=== PATIENT | male | born 1950 | race Caucasian/White ===

== ENCOUNTER 2018-07-02 15:37 | Emergency (ER) | payer MEDICARE ==
--- NOTE | 2018-07-02 16:18 | EDM.PDOC ---
ED HPI GENERAL MEDICAL PROBLEM - General Stated Complaint: POSSIBLE STROKE Time Seen by Provider: 07/02/18 15:50 Source of Information: Reports: Patient, EMS History Limitations: Reports: No Limitations - History of Present Illness INITIAL COMMENTS - FREE TEXT/NARRATIVE: According to patient he claims that he has not been able to walk or move since around 9 am today morning. Pt claims that as usual he did get up in the morning , had his breakfast and then walked upstairs and got downstairs.Sta on couch to watch Television. Around 9 am when he tried to get out of the couch, he could not support his weight on his legs and he would fall. He claims that he leans towards the left side, if he tries to stand and has no strength in his legs to stand.. He has been using his upper body strength and holding on to thing and moving around the house. Apparently as he has not been able to walk he called EMS around 4 PM. When EMS went home he was still sitting on the couch, and was brought into the emergency room. Pt's initial blood sugar was 172mgs. No incontinence of urine or stool. No nausea or vomiting. No headache. No diplopia. No tingling or numbness in the extremities. No blurry vision. No double vision. Onset: Today Onset Date: 07/02/18 Onset Time: 09:00 Duration: Constant Quality: Reports: Other (weakness) Severity: Severe Improves with: Reports: None Worsens with: Reports: None Associated Symptoms: Denies: Confusion, Chest Pain, Cough, Diaphoresis, Fever/ Chills, Headaches, Nausea/Vomiting, Rash, Seizure, Shortness of Breath, Syncope , Weakness - Related Data Allergies Allergy/AdvReac Type Severity Reaction Status Date / Time No Known Allergies Allergy Verified 07/02/18 16:11 Home Meds: Home Meds Aspirin 0.5 tab PO DAILY 07/02/18 [History] Blood Sugar Diagnostic [True Metrix Glucose Test Strip] 1 each MC DAILY [History] Lisinopril/Hydrochlorothiazide [Lisinopril-Hctz 20-25 mg Tab] 20 - 25 mg PO DAILY 07/02/18 [History] Omeprazole 40 mg PO DAILY 07/02/18 [History] Sertraline HCl [Zoloft] 50 mg PO DAILY 07/02/18 [History] Simvastatin 20 mg PO BEDTIME 07/02/18 [History] amLODIPine Besylate [Norvasc] 5 mg PO DAILY 07/02/18 [History] glipiZIDE [Glucotrol] 0.5 tab PO DAILY 07/02/18 [History] sitaGLIPtin Phos/Metformin HCl [Janumet Xr 50-500 mg Tablet] 50 - 500 mg PO DAILY 07/02/18 [History] ED ROS GENERAL - Review of Systems Review Of Systems: See Below Constitutional: Reports: Weakness. Denies: Fever, Chills HEENT: Denies: Ear Pain, Rhinitis, Throat Pain Respiratory: Denies: Shortness of Breath, Cough, Sputum Cardiovascular: Denies: Chest Pain, Edema, Lightheadedness, Syncope Endocrine: Denies: Fatigue GI/Abdominal: Denies: Abdominal Pain, Nausea, Vomiting : Denies: Dysuria, Incontinence Musculoskeletal: Denies: Joint Pain, Joint Swelling Skin: Reports: Bruising. Denies: Pruritis, Rash, Erythema Neurological: Reports: Difficulty Walking, Weakness, Gait Disturbance. Denies: Confusion, Dizziness, Headache, Numbness, Paresthesia, Tingling, Tremors, Trouble Speaking, Change in Speech ED EXAM, GENERAL - Physical Exam Exam: See Below Exam Limited By: No Limitations General Appearance: Alert, WD/WN Eye Exam: Bilateral Eye: EOMI, PERRL Ears: Normal External Exam, Normal Canal, Hearing Grossly Normal, Normal TMs Ear Exam: Bilateral Ear: Auricle Normal, Canal Normal, TM normal Nose: Normal Inspection, Normal Mucosa, No Blood Throat/Mouth: Normal Inspection, Normal Lips, Normal Teeth, Normal Gums, Normal Oropharynx, Normal Voice, No Airway Compromise Head: Atraumatic, Normocephalic Neck: Normal Inspection, Supple, Non-Tender, Full Range of Motion Respiratory/Chest: No Respiratory Distress, Lungs Clear, Normal Breath Sounds, No Accessory Muscle Use, Chest Non-Tender Cardiovascular: Normal Peripheral Pulses, Regular Rate, Rhythm, No Edema, No Gallop, No JVD, No Murmur, No Rub Peripheral Pulses: 2+: Carotid (L), Carotid (R), Radial (L), Radial (R), Dorsalis Pedis (L), Dorsalis Pedis (R) GI/Abdominal: Normal Bowel Sounds, Soft, Non-Tender, No Organomegaly, No Distention, No Abnormal Bruit, No Mass Rectal (Males) Exam: Normal Rectal Tone Back Exam: Normal Inspection, Full Range of Motion, NT Neurological: Alert, Oriented, CN II-XII Intact, Normal Cognition, Normal Reflexes, Abnormal Gait (Pt is able to stand with support, but sways to left.), Other (Muscle strength on the right is normal. His left upper extremity strength is 5/5 good hand raspberry checker, his left lower extremity is 4/5. ) Skin Exam: Warm, Other (very superficial hemostatic bruises noted over the dorsal aspect of left forearm.) EKG INTERPRETATION EKG Date: 07/02/18 Rhythm: NSR Rate (Beats/Min): 98 Walters: Normal P-Wave: Present QRS: Normal ST-T: Normal QT: Normal Course - Vital Signs Text/Narrative:: Pt's initial vitals are stable his BP was 157/97mmhg. His heart rate was 98.minutes. SPO2 100% on room air. His clinical exam was normal, other than skin bruises over the left forearm. On neuro exam, pt has very normal exam, his left upper extremity has strength 5/5 nd good hand raspberry checker. His left lower extremity strength is 4/5 , close to 5/5. He can stand and weight bear, but he does sway to the left. I did order workup and pt was taken for CT head, His Ct head does show a 2.3 by 2 cm right thalamic bleed. His CB nd CMP are stable. His PT and PT are stable. I did contact [facility] nd discuss patient with neurologist Dr. Vasquez who did agree to accept patient, under hospitalist service. Dr. Clay was contacted and patient condition and recent vitals discussed with . He did agree to accept the patient. Pt has remained hemodynamically stable and there has been no neurological deterioration during the ER stay here. Pt will be transferred by [facility] ambulance[facility]. Pt will be on IV normal saline at 75cc/hr and will be kept NPO for the duration of transfer. further care per /. - Orders/Labs/Meds Orders: Active Orders 24 hr Category Date Time Status EKG Documentation Completion [RC] ASDIRECTED Care 07/02/18 16:10 Ordered Head wo Cont [CT] Stat Exams 07/02/18 16:08 Ordered CBC WITH AUTO DIFF [HEME] Stat Lab 07/02/18 16:07 Ordered COMPREHENSIVE METABOLIC PN,CMP [CHEM] Stat Lab 07/02/18 16:07 Ordered INR,PT,PROTHROMBIN TIME [COAG] Stat Lab 07/02/18 16:07 Ordered PTT,PARTIAL THROMBOPLSTIN TIME [COAG] Stat Lab 07/02/18 16:08 Ordered EKG 12 Lead [EK] Routine Ther 07/02/18 16:09 Ordered Departure - Departure Time of Disposition: 18:30 Disposition: DC/Tfer to Acute Hospital 02 Condition: Fair Clinical Impression: Thalamic hemorrhage with stroke - Discharge Information *PRESCRIPTION DRUG MONITORING PROGRAM REVIEWED*: Not Applicable *COPY OF PRESCRIPTION DRUG MONITORING REPORT IN PATIENT KATIE: Not Applicable Referrals: PCP,Unknown [Primary Care Provider] - - Problem List & Annotations (1) Thalamic hemorrhage with stroke SNOMED Code(s): 724495737 Code(s): I61.9 - NONTRAUMATIC INTRACEREBRAL HEMORRHAGE, UNSPECIFIED Status : Acute Current Visit: Yes - Problem List Review Problem List Initiated/Reviewed/Updated: Yes - My Orders Last 24 Hours: My Active Orders 07/02/18 16:07 CBC WITH AUTO DIFF [HEME] Stat COMPREHENSIVE METABOLIC PN,CMP [CHEM] Stat INR,PT,PROTHROMBIN TIME [COAG] Stat 07/02/18 16:08 Head wo Cont [CT] Stat PTT,PARTIAL THROMBOPLSTIN TIME [COAG] Stat 07/02/18 16:09 EKG 12 Lead [EK] Routine 07/02/18 16:10 EKG Documentation Completion [RC] ASDIRECTED - Assessment/Plan Last 24 Hours: My Active Orders 07/02/18 16:07 CBC WITH AUTO DIFF [HEME] Stat COMPREHENSIVE METABOLIC PN,CMP [CHEM] Stat INR,PT,PROTHROMBIN TIME [COAG] Stat 07/02/18 16:08 Head wo Cont [CT] Stat PTT,PARTIAL THROMBOPLSTIN TIME [COAG] Stat 07/02/18 16:09 EKG 12 Lead [EK] Routine 07/02/18 16:10 EKG Documentation Completion [RC] ASDIRECTED Assessment:: Right thalamic bleed with mild left hemiparesis Plan: Pt's initial vitals are stable his BP was 157/97mmhg. His heart rate was 98.minutes. SPO2 100% on room air. His clinical exam was normal, other than skin bruises over the left forearm. On neuro exam, pt has very normal exam, his left upper extremity has strength 5/5 nd good hand raspberry checker. His left lower extremity strength is 4/5 , close to 5/5. He can stand and weight bear, but he does sway to the left. I did order workup and pt was taken for CT head, His Ct head does show a 2.3 by 2 cm right thalamic bleed. His CB nd CMP are stable. His PT and PT are stable. I did contact [facility] nd discuss patient with neurologist Dr. Vasquez who did agree to accept patient, under hospitalist service. Dr. Clay was contacted and patient condition and recent vitals discussed with . He did agree to accept the patient. Pt has remained hemodynamically stable and there has been no neurological deterioration during the ER stay here. Pt will be transferred by [facility] ambulance[facility]. Pt will be on IV normal saline at 75cc/hr and will be kept NPO for the duration of transfer. further care per /.
[2018-07-02] MEDS: Sodium Chloride 0.9% 1,000 ML IV SCH (17:46)
[2018-07-02] MEDS ORDERED: Sodium Chloride 0.9% 1,000 ML IV SCH (18:15)
--- NOTE | 2018-07-02 18:40 | CT ---
DATE OF SERVICE: 07/02/18 CLINICAL DATA: gait abnormality UNENHANCED BRAIN CT: Multislice acquisition through the brain without IV contrast was performed. No priors. There is diffuse cerebral atrophy. There are extensive periventricular lucencies bilaterally consistent with small vessel ischemic change. There is a 2.3 cm oval-shaped hyperdense focus located adjacent to the right lateral ventricle consistent with a hemorrhagic infarct or hypertensive bleed. There is minimal mass effect associated with it. No other intracranial abnormalities. There is mucosal thickening and fluid in the right maxillary sinus consistent with sinusitis. No other acute abnormalities. IMPRESSION: Abnormal exam. See above. The patient's physician was notified of the findings by telephone and by [facility] preliminary radiology report. [id number] [facility]
== END 2018-07-02 18:12 ==
LOC: LB.ED 15:37
DX: I61.9 Nontraumatic intracerebral hemorrhage, unspecified (principal); Z79.82 Long term (current) use of aspirin; Z79.899 Other long term (current) drug therapy
CPT/HCPCS: 36415; 70450; 80053; 82962; 85025; 85610; 85730; 93005; 99285; 99285-25; A0425; A0429; J7030

== ENCOUNTER 2021-12-19 17:19 | Observation (INO) | payer MEDICARE ==
[2021-12-19] MEDS ORDERED: Sodium Chloride 0.9% 10 ML Syringe FLUSH PRN (17:28)
[2021-12-19 18:20] LABS: ESTIMATED GFR 42 mL/min (>60)
[2021-12-19] MEDS ORDERED: Glucagon,Human Recombinant 1 MG Vial IM PRN (19:26)
[2021-12-19] MEDS ORDERED: 50% Dextrose in Water 50 ML Syringe IVPUSH PRN (19:26)
[2021-12-19] MEDS ORDERED: Ondansetron 4 MG/2 ML SDV IVPUSH PRN (19:45)
[2021-12-19] MEDS: Polyethylene Glycol 3350 Powder 17 GM Packet PO SCH (21:04)
[2021-12-19] MEDS: Heparin Sodium 5,000 Units/ML Vial SUBCUT SCH (21:04)
[2021-12-19] MEDS: Sodium Chloride 0.9% 1,000 ML IV SCH ×2 (21:05→23:50)
[2021-12-20] MEDS: Sodium Chloride 0.9% 1,000 ML IV SCH (06:48)
[2021-12-20] MEDS ORDERED: Aspirin 81 MG Tab.Chew PO SCH (08:00)
[2021-12-20] MEDS ORDERED: Lisinopril 20 MG Tab PO SCH (08:00)
[2021-12-20] MEDS ORDERED: Sertraline 50 MG Tab PO SCH (08:00)
[2021-12-20] MEDS ORDERED: Hydrochlorothiazide 25 MG Tab PO SCH (08:00)
[2021-12-20] MEDS: Heparin Sodium 5,000 Units/ML Vial SUBCUT SCH (08:10)
[2021-12-20] MEDS: Polyethylene Glycol 3350 Powder 17 GM Packet PO SCH (08:39)
[2021-12-20] MEDS: Insulin Lispro 100 Unit/ML 3 ML KwikPen SUBCUT SCH ×2 (09:41→11:29)
[2021-12-20] MEDS ORDERED: Insulin Aspart 100 Units/ML 3 ML Pen SUBCUT ONE (14:48)
[2021-12-20] MEDS ORDERED: Omeprazole 20 MG Cap.CR PO SCH (20:00)
[2021-12-20] MEDS ORDERED: Simvastatin 20 MG Tab PO SCH ×2 (20:00)
== END 2021-12-20 17:15 | disposition home health service (06) ==
LOC: LB.ED 17:19 → LB.MS 18:56 → INTOOBSV 18:56 → LB.MS 19:30 → UNDOADMIN 19:30
PROVIDERS: ADMIT Physician Assistant; ATTEND Physician Assistant
DX: N17.9 Acute kidney failure, unspecified (principal); E11.65 Type 2 diabetes mellitus with hyperglycemia; K59.00 Constipation, unspecified; I10 Essential (primary) hypertension; E78.00 Pure hypercholesterolemia, unspecified; Z79.84 Long term (current) use of oral hypoglycemic drugs; Z86.73 Personal history of transient ischemic attack (TIA), and cerebral infarction without residual deficits; Z79.82 Long term (current) use of aspirin; Z98.890 Other specified postprocedural states; Z20.822 Contact with and (suspected) exposure to COVID-19
CPT/HCPCS: 36415; 71045; 71250; 74176; 80048; 80053; 81001; 82947; 83605; 83690; 84484; 85025; 93005; 93010; 96360; 96361; 96372; 99217; 99219; 99285; A0425; A0429; A9270-GY; G0378; J1644; J1815; J7030; U0002

== ENCOUNTER 2022-03-13 08:52 | Inpatient (IN) | payer MEDICARE ==
[2022-03-13 11:16] LABS: ESTIMATED GFR 41 mL/min (>60)
[2022-03-13] MEDS: Sodium Chloride 0.9% 1,000 ML IV SCH ×2 (11:51→17:17)
[2022-03-13] MEDS ORDERED: Sodium Chloride 0.9% 500 ML IV SCH (12:00)
[2022-03-13] MEDS ORDERED: Ondansetron 4 MG/2 ML SDV IV PRN (13:08)
[2022-03-13] MEDS ORDERED: Non-Formulary Medication 1 Each (Diclofenac Sodium [Voltaren 1% Gel] 100 GM Tube) TOP PRN (13:12)
[2022-03-13] MEDS ORDERED: 50% Dextrose in Water 50 ML Syringe IVPUSH PRN (13:34)
[2022-03-13] MEDS ORDERED: Glucagon,Human Recombinant 1 MG Vial IM PRN (13:34)
[2022-03-13] MEDS ORDERED: Trolamine Salicylate/Aloe Vera 10% Crm 85 GM Tube TOP PRN (15:24)
[2022-03-13] MEDS: Enoxaparin 30 MG/0.3 ML Syringe SUBCUT SCH (16:01)
[2022-03-13] MEDS: Sucralfate 1 GM Tab PO SCH ×2 (16:03→20:11)
[2022-03-13] MEDS ORDERED: Insulin Aspart 100 Units/ML 3 ML Pen SUBCUT ONE (16:53)
[2022-03-13] MEDS: Insulin Glargine,Human Rec. Analog 100 Units/ML 3 ML Pen SUBCUT SCH (20:10)
[2022-03-13] MEDS: Simvastatin 20 MG Tab PO SCH (20:11)
[2022-03-14] MEDS: Sodium Chloride 0.9% 1,000 ML IV SCH ×3 (01:23→20:16)
[2022-03-14] MEDS: Aspirin 81 MG Tab.EC PO SCH (07:14)
[2022-03-14] MEDS: Sertraline 50 MG Tab PO SCH (07:14)
[2022-03-14] MEDS: Hydrochlorothiazide 25 MG Tab PO SCH (07:14)
[2022-03-14] MEDS: Lisinopril 20 MG Tab PO SCH (07:14)
[2022-03-14] MEDS: Sucralfate 1 GM Tab PO SCH ×3 (07:14→19:18)
[2022-03-14] MEDS: Pantoprazole 40 MG Tab.CR PO SCH (07:14)
[2022-03-14] MEDS: Acetaminophen 325 MG Tab PO PRN (09:23)
[2022-03-14 10:36] LABS: HEMOGLOBIN A1C 9.7 % (< 5.7)
[2022-03-14] MEDS: Enoxaparin 30 MG/0.3 ML Syringe SUBCUT SCH (12:45)
[2022-03-14] MEDS: Insulin Glargine,Human Rec. Analog 100 Units/ML 3 ML Pen SUBCUT SCH (19:18)
[2022-03-14] MEDS: Simvastatin 20 MG Tab PO SCH (19:19)
[2022-03-15] MEDS: Aspirin 81 MG Tab.EC PO SCH (07:39)
[2022-03-15] MEDS: Lisinopril 20 MG Tab PO SCH (07:39)
[2022-03-15] MEDS: Sertraline 50 MG Tab PO SCH (07:39)
[2022-03-15] MEDS: Hydrochlorothiazide 25 MG Tab PO SCH (07:39)
[2022-03-15] MEDS: Pantoprazole 40 MG Tab.CR PO SCH (07:41)
[2022-03-15] MEDS: Sucralfate 1 GM Tab PO SCH ×5 (07:41→21:42)
[2022-03-15] MEDS ORDERED: metFORMIN 500 MG Tab ONE (09:35)
[2022-03-15] MEDS: metFORMIN 500 MG Tab PO SCH ×2 (09:46→17:05)
[2022-03-15] MEDS: Acetaminophen 325 MG Tab PO PRN (14:24)
[2022-03-15] MEDS: Enoxaparin 30 MG/0.3 ML Syringe SUBCUT SCH (17:05)
[2022-03-15] MEDS ORDERED: SitaGLIPtin 25 MG Tab PO SCH (20:00)
[2022-03-15] MEDS: JANUVIA 50 MG PO SCH (21:42)
[2022-03-15] MEDS: Simvastatin 20 MG Tab PO SCH (21:43)
[2022-03-15] MEDS: Insulin Glargine,Human Rec. Analog 100 Units/ML 3 ML Pen SUBCUT SCH (21:44)
[2022-03-16] MEDS: Sucralfate 1 GM Tab PO SCH ×4 (08:31→20:12)
[2022-03-16] MEDS: metFORMIN 500 MG Tab PO SCH ×3 (08:32→18:33)
[2022-03-16] MEDS: Aspirin 81 MG Tab.EC PO SCH (08:32)
[2022-03-16] MEDS: Pantoprazole 40 MG Tab.CR PO SCH (08:32)
[2022-03-16] MEDS: Lisinopril 20 MG Tab PO SCH (08:32)
[2022-03-16] MEDS: Hydrochlorothiazide 25 MG Tab PO SCH (08:32)
[2022-03-16] MEDS: Sertraline 50 MG Tab PO SCH (08:33)
[2022-03-16] MEDS: JANUVIA 50 MG PO SCH ×2 (08:33→20:12)
[2022-03-16] MEDS: Acetaminophen 325 MG Tab PO PRN (11:45)
[2022-03-16] MEDS: Enoxaparin 30 MG/0.3 ML Syringe SUBCUT SCH (14:01)
[2022-03-16] MEDS: Simvastatin 20 MG Tab PO SCH (20:12)
[2022-03-16] MEDS: Insulin Glargine,Human Rec. Analog 100 Units/ML 3 ML Pen SUBCUT SCH (20:53)
[2022-03-17] MEDS: Sertraline 50 MG Tab PO SCH (07:46)
[2022-03-17] MEDS: Hydrochlorothiazide 25 MG Tab PO SCH (07:46)
[2022-03-17] MEDS: Pantoprazole 40 MG Tab.CR PO SCH (07:46)
[2022-03-17] MEDS: Aspirin 81 MG Tab.EC PO SCH (07:47)
[2022-03-17] MEDS: metFORMIN 500 MG Tab PO SCH ×4 (07:47→16:04)
[2022-03-17] MEDS: Sucralfate 1 GM Tab PO SCH ×4 (07:47→20:15)
[2022-03-17] MEDS: Lisinopril 20 MG Tab PO SCH (07:48)
[2022-03-17] MEDS ORDERED: Sertraline 50 MG Tab ONE (07:56)
[2022-03-17] MEDS: JANUVIA 50 MG PO SCH ×2 (08:00→20:16)
[2022-03-17] MEDS: Acetaminophen 325 MG Tab PO PRN (13:08)
[2022-03-17] MEDS: Enoxaparin 30 MG/0.3 ML Syringe SUBCUT SCH (13:09)
[2022-03-17] MEDS: Simvastatin 20 MG Tab PO SCH (20:15)
[2022-03-17] MEDS: Insulin Glargine,Human Rec. Analog 100 Units/ML 3 ML Pen SUBCUT SCH (20:15)
[2022-03-18] MEDS: JANUVIA 50 MG PO SCH ×2 (08:00→19:42)
[2022-03-18] MEDS: Lisinopril 20 MG Tab PO SCH (08:12)
[2022-03-18] MEDS: Sucralfate 1 GM Tab PO SCH ×4 (08:12→19:40)
[2022-03-18] MEDS: Hydrochlorothiazide 25 MG Tab PO SCH (08:13)
[2022-03-18] MEDS: metFORMIN 500 MG Tab PO SCH ×2 (08:13→16:30)
[2022-03-18] MEDS: Sertraline 50 MG Tab PO SCH (08:13)
[2022-03-18] MEDS: Aspirin 81 MG Tab.EC PO SCH (08:13)
[2022-03-18] MEDS: Pantoprazole 40 MG Tab.CR PO SCH (08:13)
[2022-03-18] MEDS ORDERED: Tamsulosin 0.4 MG Cap.ER PO ONE (10:57)
[2022-03-18] MEDS: Enoxaparin 30 MG/0.3 ML Syringe SUBCUT SCH (13:12)
[2022-03-18] MEDS: Tamsulosin 0.4 MG Cap.ER ONE ×2 (17:01→17:02)
[2022-03-18] MEDS: Simvastatin 20 MG Tab PO SCH (19:40)
[2022-03-18] MEDS: Insulin Glargine,Human Rec. Analog 100 Units/ML 3 ML Pen SUBCUT SCH (19:41)
[2022-03-19] MEDS: metFORMIN 500 MG Tab PO SCH ×2 (08:22→16:35)
[2022-03-19] MEDS: Aspirin 81 MG Tab.EC PO SCH (08:22)
[2022-03-19] MEDS: Sertraline 50 MG Tab PO SCH (08:22)
[2022-03-19] MEDS: Pantoprazole 40 MG Tab.CR PO SCH (08:23)
[2022-03-19] MEDS: Lisinopril 20 MG Tab PO SCH (08:23)
[2022-03-19] MEDS: Sucralfate 1 GM Tab PO SCH ×4 (08:25→20:26)
[2022-03-19] MEDS: Hydrochlorothiazide 25 MG Tab PO SCH (08:25)
[2022-03-19] MEDS: JANUVIA 50 MG PO SCH ×4 (08:27→20:25)
[2022-03-19] MEDS: Enoxaparin 30 MG/0.3 ML Syringe SUBCUT SCH (13:55)
[2022-03-19] MEDS: Simvastatin 20 MG Tab PO SCH (20:26)
[2022-03-19] MEDS: Insulin Glargine,Human Rec. Analog 100 Units/ML 3 ML Pen SUBCUT SCH (20:26)
[2022-03-20] MEDS: JANUVIA 50 MG PO SCH ×2 (07:54→19:27)
[2022-03-20] MEDS: Aspirin 81 MG Tab.EC PO SCH (07:54)
[2022-03-20] MEDS: metFORMIN 500 MG Tab PO SCH ×2 (07:54→17:00)
[2022-03-20] MEDS: Sertraline 50 MG Tab PO SCH (07:57)
[2022-03-20] MEDS: Pantoprazole 40 MG Tab.CR PO SCH (07:57)
[2022-03-20] MEDS: Sucralfate 1 GM Tab PO SCH ×4 (07:58→19:27)
[2022-03-20] MEDS: Lisinopril 20 MG Tab PO SCH (07:58)
[2022-03-20] MEDS: Acetaminophen 325 MG Tab PO PRN (07:58)
[2022-03-20] MEDS: Hydrochlorothiazide 25 MG Tab PO SCH (08:00)
[2022-03-20] MEDS ORDERED: Tamsulosin 0.4 MG Cap.ER PO ONE (09:30)
[2022-03-20] MEDS: Enoxaparin 30 MG/0.3 ML Syringe SUBCUT SCH (14:36)
[2022-03-20] MEDS: Tamsulosin 0.4 MG Cap.ER PO SCH (19:27)
[2022-03-20] MEDS: Simvastatin 20 MG Tab PO SCH (19:27)
[2022-03-20] MEDS ORDERED: Sucralfate 1 GM Tab ONE (19:27)
[2022-03-20] MEDS: Insulin Glargine,Human Rec. Analog 100 Units/ML 3 ML Pen SUBCUT SCH (19:28)
[2022-03-21] MEDS: Sucralfate 1 GM Tab PO SCH ×4 (08:23→19:42)
[2022-03-21] MEDS: JANUVIA 50 MG PO SCH ×2 (08:24→19:42)
[2022-03-21] MEDS: Hydrochlorothiazide 25 MG Tab PO SCH (08:24)
[2022-03-21] MEDS: Lisinopril 20 MG Tab PO SCH (08:24)
[2022-03-21] MEDS: Aspirin 81 MG Tab.EC PO SCH (08:24)
[2022-03-21] MEDS: Pantoprazole 40 MG Tab.CR PO SCH (08:24)
[2022-03-21] MEDS: Sertraline 50 MG Tab PO SCH (08:25)
[2022-03-21] MEDS: Acetaminophen 325 MG Tab PO PRN (09:28)
[2022-03-21] MEDS: metFORMIN 500 MG Tab PO SCH ×2 (09:28→17:02)
[2022-03-21] MEDS: Tamsulosin 0.4 MG Cap.ER PO SCH ×2 (10:05→19:42)
[2022-03-21] MEDS: Enoxaparin 30 MG/0.3 ML Syringe SUBCUT SCH (14:18)
[2022-03-21] MEDS: Simvastatin 20 MG Tab PO SCH (19:42)
[2022-03-21] MEDS: Insulin Glargine,Human Rec. Analog 100 Units/ML 3 ML Pen SUBCUT SCH (19:42)
[2022-03-22] MEDS: Sucralfate 1 GM Tab PO SCH ×4 (07:45→20:41)
[2022-03-22] MEDS: metFORMIN 500 MG Tab PO SCH ×2 (07:48→16:59)
[2022-03-22] MEDS: Lisinopril 20 MG Tab PO SCH (07:48)
[2022-03-22] MEDS: Aspirin 81 MG Tab.EC PO SCH (07:48)
[2022-03-22] MEDS: Acetaminophen 325 MG Tab PO PRN (07:49)
[2022-03-22] MEDS: Pantoprazole 40 MG Tab.CR PO SCH (07:49)
[2022-03-22] MEDS ORDERED: metFORMIN 500 MG Tab ONE (07:49)
[2022-03-22] MEDS: Sertraline 50 MG Tab PO SCH (07:49)
[2022-03-22] MEDS: Hydrochlorothiazide 25 MG Tab PO SCH (07:50)
[2022-03-22] MEDS: JANUVIA 50 MG PO SCH ×2 (07:50→20:45)
[2022-03-22] MEDS ORDERED: Carboxymethylcellulose Sodium 0.5% Ophth Soln 15 ML Bottle EYEBOTH PRN (10:07)
[2022-03-22] MEDS: Polyvinyl Alcohol 1.4% Ophth Soln 15 ML Bottle EYEBOTH PRN (12:05)
[2022-03-22] MEDS: Enoxaparin 30 MG/0.3 ML Syringe SUBCUT SCH (14:45)
[2022-03-22] MEDS: Insulin Glargine,Human Rec. Analog 100 Units/ML 3 ML Pen SUBCUT SCH (16:00)
[2022-03-22] MEDS: Simvastatin 20 MG Tab PO SCH (20:41)
[2022-03-22] MEDS: Tamsulosin 0.4 MG Cap.ER PO SCH (20:41)
[2022-03-23] MEDS: Lisinopril 20 MG Tab PO SCH (07:51)
[2022-03-23] MEDS: JANUVIA 50 MG PO SCH ×2 (07:51→19:28)
[2022-03-23] MEDS: Aspirin 81 MG Tab.EC PO SCH (07:56)
[2022-03-23] MEDS: Sucralfate 1 GM Tab PO SCH ×4 (07:56→19:24)
[2022-03-23] MEDS: metFORMIN 500 MG Tab PO SCH ×2 (07:56→17:03)
[2022-03-23] MEDS: Sertraline 50 MG Tab PO SCH (07:57)
[2022-03-23] MEDS: Hydrochlorothiazide 25 MG Tab PO SCH (07:57)
[2022-03-23] MEDS: Pantoprazole 40 MG Tab.CR PO SCH (07:57)
[2022-03-23] MEDS ORDERED: metFORMIN 500 MG Tab.ER ONE (08:01)
[2022-03-23] MEDS: Tamsulosin 0.4 MG Cap.ER PO SCH ×2 (11:10→19:25)
[2022-03-23] MEDS: Polyvinyl Alcohol 1.4% Ophth Soln 15 ML Bottle EYEBOTH PRN (11:59)
[2022-03-23] MEDS: Enoxaparin 30 MG/0.3 ML Syringe SUBCUT SCH (13:12)
[2022-03-23] MEDS: Simvastatin 20 MG Tab PO SCH (19:25)
[2022-03-23] MEDS: Insulin Glargine,Human Rec. Analog 100 Units/ML 3 ML Pen SUBCUT SCH (19:25)
[2022-03-24] MEDS: Acetaminophen 325 MG Tab PO PRN (01:34)
[2022-03-24] MEDS: Hydrochlorothiazide 25 MG Tab PO SCH (08:41)
[2022-03-24] MEDS: metFORMIN 500 MG Tab PO SCH ×2 (08:41→16:43)
[2022-03-24] MEDS: Aspirin 81 MG Tab.EC PO SCH (08:41)
[2022-03-24] MEDS: Sertraline 50 MG Tab PO SCH (08:42)
[2022-03-24] MEDS: Tamsulosin 0.4 MG Cap.ER PO SCH ×2 (08:42→19:25)
[2022-03-24] MEDS: Pantoprazole 40 MG Tab.CR PO SCH (08:42)
[2022-03-24] MEDS: Sucralfate 1 GM Tab PO SCH ×4 (08:42→19:25)
[2022-03-24] MEDS: Lisinopril 20 MG Tab PO SCH (08:42)
[2022-03-24] MEDS: JANUVIA 50 MG PO SCH (08:43)
[2022-03-24] MEDS: Enoxaparin 30 MG/0.3 ML Syringe SUBCUT SCH (13:18)
[2022-03-24] MEDS: Simvastatin 20 MG Tab PO SCH (19:25)
[2022-03-24] MEDS: Insulin Glargine,Human Rec. Analog 100 Units/ML 3 ML Pen SUBCUT SCH (19:27)
[2022-03-25] MEDS: Lisinopril 20 MG Tab PO SCH (07:16)
[2022-03-25] MEDS: Pantoprazole 40 MG Tab.CR PO SCH (07:16)
[2022-03-25] MEDS: Aspirin 81 MG Tab.EC PO SCH (07:16)
[2022-03-25] MEDS: Tamsulosin 0.4 MG Cap.ER PO SCH ×2 (07:16→19:32)
[2022-03-25] MEDS: Sertraline 50 MG Tab PO SCH (07:16)
[2022-03-25] MEDS: Hydrochlorothiazide 25 MG Tab PO SCH (07:16)
[2022-03-25] MEDS: JANUVIA 50 MG PO SCH ×3 (07:21→20:48)
[2022-03-25] MEDS: Sucralfate 1 GM Tab PO SCH ×4 (07:21→19:32)
[2022-03-25] MEDS: metFORMIN 500 MG Tab PO SCH ×2 (07:21→16:25)
[2022-03-25] MEDS: Enoxaparin 30 MG/0.3 ML Syringe SUBCUT SCH (14:37)
[2022-03-25] MEDS: Simvastatin 20 MG Tab PO SCH (19:32)
[2022-03-25] MEDS: Insulin Glargine,Human Rec. Analog 100 Units/ML 3 ML Pen SUBCUT SCH (19:33)
[2022-03-26] MEDS: metFORMIN 500 MG Tab PO SCH (08:12)
[2022-03-26] MEDS: Sucralfate 1 GM Tab PO SCH (08:12)
[2022-03-26] MEDS: Tamsulosin 0.4 MG Cap.ER PO SCH (08:12)
[2022-03-26] MEDS: Lisinopril 20 MG Tab PO SCH (08:13)
[2022-03-26] MEDS: Aspirin 81 MG Tab.EC PO SCH (08:13)
[2022-03-26] MEDS: Pantoprazole 40 MG Tab.CR PO SCH (08:13)
[2022-03-26] MEDS: Sertraline 50 MG Tab PO SCH (08:13)
[2022-03-26] MEDS: JANUVIA 50 MG PO SCH (08:14)
[2022-03-26] MEDS: Hydrochlorothiazide 25 MG Tab PO SCH (08:16)
== END 2022-03-26 09:20 | DRG 638 ==
LOC: LB.ED 08:52 → LB.MS 11:51
PROVIDERS: ADMIT Nurse Practitioner Family; ATTEND Surgery
DX: E11.65 Type 2 diabetes mellitus with hyperglycemia (principal); N17.9 Acute kidney failure, unspecified; R53.1 Weakness; N18.32 Chronic kidney disease, stage 3b; E86.0 Dehydration; G31.84 Mild cognitive impairment of uncertain or unknown etiology; E78.00 Pure hypercholesterolemia, unspecified; I12.9 Hypertensive chronic kidney disease with stage 1 through stage 4 chronic kidney disease, or unspecified chronic kidney disease; Z20.822 Contact with and (suspected) exposure to COVID-19; R62.7 Adult failure to thrive; Z74.1 Need for assistance with personal care; E11.22 Type 2 diabetes mellitus with diabetic chronic kidney disease; K21.9 Gastro-esophageal reflux disease without esophagitis; N40.1 Benign prostatic hyperplasia with lower urinary tract symptoms; N39.498 Other specified urinary incontinence; Z79.890 Hormone replacement therapy; Z79.84 Long term (current) use of oral hypoglycemic drugs; Z79.899 Other long term (current) drug therapy; Z87.891 Personal history of nicotine dependence; Z79.82 Long term (current) use of aspirin; Z68.25 Body mass index [BMI] 25.0-25.9, adult
CPT/HCPCS: 36415; 76857; 80053; 81003; 82947; 83036; 83735; 84153; 85025; 92507-GN; 96125-GN; 97110-GO; 97110-GP; 97116-GP; 97161-GP; 97165-GO; 97530-GO; 97530-GP; 97535-GO; 99285; A9270-GY; J1650; J1815-GY; J7030; U0002

== ENCOUNTER 2022-07-11 22:00 | Emergency (ER) | payer MEDICARE ==
[2022-07-11] MEDS ORDERED: Ondansetron 4 MG/2 ML SDV IVPUSH ONE (22:24)
[2022-07-11] MEDS ORDERED: Sodium Chloride 0.9% 1,000 ML IV ONE (22:24)
[2022-07-11 23:03] LABS: ESTIMATED GFR 60 mL/min (>60)
[2022-07-11] MEDS ORDERED: Ondansetron 4 MG/2 ML SDV ONE (23:16)
== END 2022-07-12 00:45 ==
LOC: LB.ED 22:00
DX: K52.9 Noninfective gastroenteritis and colitis, unspecified (principal); E11.9 Type 2 diabetes mellitus without complications; E78.00 Pure hypercholesterolemia, unspecified; I10 Essential (primary) hypertension; K21.9 Gastro-esophageal reflux disease without esophagitis; Z79.82 Long term (current) use of aspirin; Z79.899 Other long term (current) drug therapy; Z79.4 Long term (current) use of insulin
CPT/HCPCS: 36415; 71045; 74018; 80053; 83690; 85025; 96361; 96374; 99285; J2405; J7030

== ENCOUNTER 2022-11-24 06:39 | Emergency (ER) | payer MEDICARE ==
[2022-11-24 07:20] LABS: BASOPHILS ABSOLUTE AUTO 0.05 K/uL (0.02-0.10); BASOPHILS PERCENT AUTO 0.7 % (0.0-0.5); EOSINOPHILS ABSOLUTE AUTO 0.14 K/uL (0.04-0.40); EOSINOPHILS PERCENT AUTO 2.1 % (1.0-5.0); HEMATOCRIT 33.3 % (40.0-54.0); HEMOGLOBIN 11.8 g/dL (13.0-18.0); LYMPHOCYTES ABSOLUTE AUTO 2.25 K/uL (1.50-4.00); MEAN CORPUSCULAR HEMOGLOBIN 32.3 pg (27.0-32.0); MEAN CORPUSCULAR HGB CONC 35.4 g/dL (31.0-35.0); MEAN CORPUSCULAR VOLUME 91 fL (76-96); MONOCYTES ABSOLUTE AUTO 0.53 K/uL (0.20-0.80); MONOCYTES PERCENT AUTO 7.8 % (3.0-10.0); NEUTROPHILS ABSOLUTE AUTO 3.84 K/uL (2.00-7.50); NEUTROPHILS PERCENT AUTO 56.4 % (45.0-70.0); PLATELET COUNT,PLT 241 K/uL (150-400); RED BLOOD CELL COUNT 3.65 M/uL (4.50-6.50); RED CELL DISTRIBUTION WIDTH 12.2 % (11.0-16.0); WHITE BLOOD CELL COUNT,WBC 6.8 K/uL (4.0-11.0)
[2022-11-24 07:29] LABS: ANION GAP 11.6 mmol/L (5.0-15.0); BLOOD UREA NITROGEN,BUN 18 mg/dL (8-26); BUN/CREATININE RATIO 18.2 (6-25); CALCIUM 8.6 mg/dL (8.5-10.1); CARBON DIOXIDE,CO2 28.9 mmol/L (21.0-32.0); CHLORIDE,CL 108 mmol/L (98-107); CREATININE 0.99 mg/dL (0.70-1.30); ESTIMATED GFR 80 mL/min (>60); GLUCOSE RANDOM 140 mg/dL (74-100); POTASSIUM,K 3.5 mmol/L (3.5-5.1); SODIUM,NA 145 mmol/L (136-145)
[2022-11-24 07:40] LABS: INR 1.2 (1.0-3.5); PTT,PARTIAL THROMBOPLSTIN TIME 27.5 SECONDS (24.4-33.2)
[2022-11-24 07:42] LABS: PROTHROMBIN TIME 12.1 sec (9.0-11.5)
[2022-11-24] MEDS: LORazepam 2 MG/ML SDV IVPUSH ONE (08:03)
[2022-11-24 12:15] LABS: APPEARANCE,URINE CLEAR (CLEAR); BILIRUBIN,URINE SMALL (NEGATIVE); COLOR,URINE YELLOW; GLUCOSE,URINE NEGATIVE (NEGATIVE); KETONES,URINE TRACE mg/dL (NEGATIVE); LEUKOCYTE ESTERASE,URINE NEGATIVE (NEGATIVE); NITRITE,URINE NEGATIVE (NEGATIVE); OCCULT BLOOD,URINE TRACE-INTACT (NEGATIVE); PROTEIN,URINE >=300 mg/dL (NEGATIVE)
[2022-11-24 12:20] LABS: WBC,URINE 0-5 /HPF
[2022-11-24 12:21] LABS: SQUAMOUS EPITHELIAL CELLS,UR OCCASIONAL /HPF
== END 2022-11-24 09:13 | disposition home or self-care (01) ==
LOC: LB.ED 06:39
DX: F03.90 Unspecified dementia, unspecified severity, without behavioral disturbance, psychotic disturbance, mood disturbance, and anxiety (principal); E11.22 Type 2 diabetes mellitus with diabetic chronic kidney disease; N18.9 Chronic kidney disease, unspecified; E78.00 Pure hypercholesterolemia, unspecified; I10 Essential (primary) hypertension; K21.9 Gastro-esophageal reflux disease without esophagitis; E11.9 Type 2 diabetes mellitus without complications; Z79.82 Long term (current) use of aspirin; Z79.84 Long term (current) use of oral hypoglycemic drugs; Z79.899 Other long term (current) drug therapy; W19.XXXA Unspecified fall, initial encounter; Y92.129 Unspecified place in nursing home as the place of occurrence of the external cause
CPT/HCPCS: 36415; 70450; 71250; 72125; 74176; 80048; 81001; 82947; 84484; 85025; 85610; 85730; 93005; 96374; 99284; J2060

== ENCOUNTER 2022-11-27 22:14 | Emergency (ER) | payer MEDICARE ==
[2022-11-27] MEDS ORDERED: Haloperidol Lactate 5 MG/ML SDV IM ONE (22:21)
[2022-11-27] MEDS ORDERED: LORazepam 2 MG/ML SDV IM ONE (22:22)
[2022-11-27] MEDS ORDERED: Sodium Phosphate,Monobasic/Sodium Phosphate,Dibasic Enema 133 ML Bottle RECTAL ONE ×2 (22:45→23:35)
[2022-11-27] MEDS ORDERED: Lactulose Soln 10 GM/15 ML 15 ML UD Cup PO ONE (23:33)
[2022-11-28] MEDS ORDERED: Sodium Phosphate,Monobasic/Sodium Phosphate,Dibasic Enema 133 ML Bottle RECTAL ONE ×2 (00:09→00:49)
[2022-11-28] MEDS ORDERED: Lactulose Soln 10 GM/15 ML 15 ML UD Cup PO ONE (00:15)
== END 2022-11-28 01:25 ==
LOC: LB.ED 22:14 → SUPCPDRO 22:14 → LB.ED 11-28 01:25
DX: K59.00 Constipation, unspecified (principal); I10 Essential (primary) hypertension; E78.00 Pure hypercholesterolemia, unspecified; K21.9 Gastro-esophageal reflux disease without esophagitis; E11.9 Type 2 diabetes mellitus without complications; M19.90 Unspecified osteoarthritis, unspecified site; Z88.1 Allergy status to other antibiotic agents; Z79.82 Long term (current) use of aspirin; Z79.84 Long term (current) use of oral hypoglycemic drugs; Z79.899 Other long term (current) drug therapy
CPT/HCPCS: 74018; 96372; 99283; A9270-GY; J1630; J2060

== ENCOUNTER 2022-12-04 14:27 | Inpatient (IN) | payer MEDICARE ==
[2022-12-04 15:08] LABS: BASOPHILS ABSOLUTE AUTO 0.04 K/uL (0.02-0.10); BASOPHILS PERCENT AUTO 0.6 % (0.0-0.5); EOSINOPHILS ABSOLUTE AUTO 0.33 K/uL (0.04-0.40); EOSINOPHILS PERCENT AUTO 5.1 % (1.0-5.0); HEMATOCRIT 35.3 % (40.0-54.0); HEMOGLOBIN 12.8 g/dL (13.0-18.0); LYMPHOCYTES ABSOLUTE AUTO 1.83 K/uL (1.50-4.00); LYMPHOCYTES PERCENT AUTO 28.1 % (20.0-40.0); MEAN CORPUSCULAR HEMOGLOBIN 32.3 pg (27.0-32.0); MEAN CORPUSCULAR HGB CONC 36.3 g/dL (31.0-35.0); MEAN CORPUSCULAR VOLUME 89 fL (76-96); MONOCYTES ABSOLUTE AUTO 0.42 K/uL (0.20-0.80); MONOCYTES PERCENT AUTO 6.4 % (3.0-10.0); NEUTROPHILS PERCENT AUTO 59.8 % (45.0-70.0); PLATELET COUNT,PLT 279 K/uL (150-400); RED BLOOD CELL COUNT 3.96 M/uL (4.50-6.50); WHITE BLOOD CELL COUNT,WBC 6.5 K/uL (4.0-11.0)
[2022-12-04] MEDS ORDERED: Morphine 4 MG/ML VIAL IVPUSH ONE (15:17)
[2022-12-04] MEDS ORDERED: Morphine 4 MG/ML VIAL ONE (15:22)
[2022-12-04 15:32] LABS: ALBUMIN 3.5 g/dL (3.4-5.0); ANION GAP 12.3 mmol/L (5.0-15.0); BILIRUBIN TOTAL 0.5 mg/dL (0.0-1.0); CALCIUM 9.1 mg/dL (8.5-10.1); CARBON DIOXIDE,CO2 29.3 mmol/L (21.0-32.0); CREATININE 1.62 mg/dL (0.70-1.30); EST CRCL DRUG DOSING (CG) 37.4 mL/min; POTASSIUM,K 3.6 mmol/L (3.5-5.1)
[2022-12-04] MEDS ORDERED: Sodium Chloride 0.9% 1,000 ML IV SCH (15:45)
[2022-12-04 18:01] LABS: APPEARANCE,URINE CLEAR (CLEAR); BILIRUBIN,URINE SMALL (NEGATIVE); COLOR,URINE YELLOW; GLUCOSE,URINE NEGATIVE (NEGATIVE); KETONES,URINE TRACE mg/dL (NEGATIVE); LEUKOCYTE ESTERASE,URINE NEGATIVE (NEGATIVE); NITRITE,URINE NEGATIVE (NEGATIVE); OCCULT BLOOD,URINE NEGATIVE (NEGATIVE); PH,URINE 5.5 (5.0-8.0); PROTEIN,URINE 30 mg/dL (NEGATIVE)
[2022-12-04 18:08] LABS: RBC,URINE 0-5 /HPF; WBC,URINE 0-5 /HPF
[2022-12-04] MEDS ORDERED: Bisacodyl 5 MG Tab PO PRN (18:13)
[2022-12-04] MEDS ORDERED: Lactated Ringers 1,000 ML IV SCH (18:15)
[2022-12-04] MEDS ORDERED: Non-Formulary Medication 1 Each (Carboxymethylcellulose Sodium [Artificial Tears] 15 ML Dr OP PRN (18:18)
[2022-12-04] MEDS ORDERED: Magnesium Hydroxide 400 MG/5 ML Susp 30 ML Cup PO PRN (18:18)
[2022-12-04] MEDS ORDERED: Non-Formulary Medication 1 Each (Melatonin [Melatonin] 3 MG Capsule) PO PRN (18:18)
[2022-12-04] MEDS: Simvastatin 20 MG Tab PO SCH (20:34)
[2022-12-04] MEDS: Tamsulosin 0.4 MG Cap.ER PO SCH (20:35)
[2022-12-04] MEDS: Acetaminophen 325 MG Tab PO PRN (20:35)
[2022-12-04] MEDS: Ciprofloxacin 500 MG Tab PO SCH (20:35)
[2022-12-04] MEDS: metroNIDAZOLE 500 MG Tab PO SCH (20:35)
[2022-12-04] MEDS ORDERED: metroNIDAZOLE 500 MG Tab ONE (20:35)
[2022-12-04] MEDS ORDERED: LORazepam 2 MG/ML SDV ONE (22:15)
[2022-12-04] MEDS ORDERED: LORazepam 2 MG/ML SDV IVPUSH ONE (22:20)
[2022-12-05] MEDS: metroNIDAZOLE 500 MG Tab PO SCH ×3 (02:35→17:54)
[2022-12-05] MEDS: Tamsulosin 0.4 MG Cap.ER PO SCH ×2 (08:06→19:11)
[2022-12-05] MEDS: Ciprofloxacin 500 MG Tab PO SCH ×2 (08:06→19:11)
[2022-12-05] MEDS: metFORMIN 1,000 MG Tab PO SCH ×2 (08:06→17:54)
[2022-12-05] MEDS: Aspirin 81 MG Tab.EC PO SCH (08:06)
[2022-12-05] MEDS: Lisinopril 20 MG Tab PO SCH (08:06)
[2022-12-05] MEDS: Pantoprazole 40 MG Tab.CR PO SCH (08:07)
[2022-12-05] MEDS: Sertraline 50 MG Tab PO SCH (08:07)
[2022-12-05] MEDS: Non-Formulary Medication 1 Each (Semaglutide [Rybelsus] 3 MG Tablet) PO SCH (08:09)
[2022-12-05 08:30] LABS: ANION GAP 12.1 mmol/L (5.0-15.0); BUN/CREATININE RATIO 23.5 (6-25); CALCIUM 8.8 mg/dL (8.5-10.1); CARBON DIOXIDE,CO2 29.3 mmol/L (21.0-32.0); CREATININE 0.98 mg/dL (0.70-1.30); EST CRCL DRUG DOSING (CG) 61.83 mL/min; POTASSIUM,K 3.4 mmol/L (3.5-5.1)
[2022-12-05] MEDS ORDERED: LORazepam 2 MG/ML SDV IM PRN (16:19)
[2022-12-05] MEDS: Acetaminophen 325 MG Tab PO PRN (17:54)
[2022-12-05] MEDS: Simvastatin 20 MG Tab PO SCH (19:11)
[2022-12-06] MEDS: metroNIDAZOLE 500 MG Tab PO SCH ×4 (05:00→19:38)
[2022-12-06] MEDS: Haloperidol Lactate 5 MG/ML SDV IM PRN ×2 (09:48→18:38)
[2022-12-06] MEDS: Pantoprazole 40 MG Tab.CR PO SCH (11:22)
[2022-12-06] MEDS: Lisinopril 20 MG Tab PO SCH (11:22)
[2022-12-06] MEDS: Aspirin 81 MG Tab.EC PO SCH (11:22)
[2022-12-06] MEDS: Tamsulosin 0.4 MG Cap.ER PO SCH ×2 (11:22→19:38)
[2022-12-06] MEDS: Ciprofloxacin 500 MG Tab PO SCH ×2 (11:51→19:38)
[2022-12-06] MEDS: metFORMIN 1,000 MG Tab PO SCH ×2 (11:51→17:12)
[2022-12-06] MEDS: Non-Formulary Medication 1 Each (Semaglutide [Rybelsus] 3 MG Tablet) PO SCH (11:51)
[2022-12-06] MEDS: Sertraline 50 MG Tab PO SCH (11:52)
[2022-12-07] MEDS: metroNIDAZOLE 500 MG Tab PO SCH ×4 (04:58→19:37)
[2022-12-07] MEDS: Haloperidol Lactate 5 MG/ML SDV IM PRN ×2 (04:59→19:38)
[2022-12-07] MEDS: Aspirin 81 MG Tab.EC PO SCH (08:14)
[2022-12-07] MEDS: Ciprofloxacin 500 MG Tab PO SCH ×2 (08:14→19:37)
[2022-12-07] MEDS: Tamsulosin 0.4 MG Cap.ER PO SCH ×2 (08:14→19:37)
[2022-12-07] MEDS: Pantoprazole 40 MG Tab.CR PO SCH (08:15)
[2022-12-07] MEDS: Non-Formulary Medication 1 Each (Semaglutide [Rybelsus] 3 MG Tablet) PO SCH (08:15)
[2022-12-07] MEDS: Sertraline 50 MG Tab PO SCH (08:15)
[2022-12-07] MEDS: Lisinopril 20 MG Tab PO SCH (08:20)
[2022-12-07] MEDS: metFORMIN 1,000 MG Tab PO SCH ×2 (08:25→17:07)
[2022-12-07] MEDS: Acetaminophen 325 MG Tab PO PRN (17:07)
[2022-12-08] MEDS ORDERED: Bisacodyl 10 MG Supp ONE (07:24)
[2022-12-08] MEDS ORDERED: Bisacodyl 10 MG Supp RECTAL ONE (07:46)
[2022-12-08] MEDS: metFORMIN 1,000 MG Tab PO SCH ×2 (10:08→19:05)
[2022-12-08] MEDS: Tamsulosin 0.4 MG Cap.ER PO SCH ×2 (10:08→20:52)
[2022-12-08] MEDS: Lisinopril 20 MG Tab PO SCH (10:08)
[2022-12-08] MEDS: Aspirin 81 MG Tab.EC PO SCH (10:08)
[2022-12-08] MEDS: Non-Formulary Medication 1 Each (Semaglutide [Rybelsus] 3 MG Tablet) PO SCH (10:09)
[2022-12-08] MEDS: Pantoprazole 40 MG Tab.CR PO SCH (10:09)
[2022-12-08] MEDS: Sertraline 50 MG Tab PO SCH (10:09)
[2022-12-08] MEDS: Ciprofloxacin 500 MG Tab PO SCH (10:10)
[2022-12-08] MEDS: metroNIDAZOLE 500 MG Tab PO SCH (10:11)
[2022-12-08] MEDS: Haloperidol Lactate 5 MG/ML SDV IM PRN (20:52)
[2022-12-09] MEDS: Tamsulosin 0.4 MG Cap.ER PO SCH ×3 (04:31→19:34)
[2022-12-09] MEDS: Aspirin 81 MG Tab.EC PO SCH (12:41)
[2022-12-09] MEDS: metFORMIN 1,000 MG Tab PO SCH ×2 (12:41→18:57)
[2022-12-09] MEDS: Pantoprazole 40 MG Tab.CR PO SCH (12:41)
[2022-12-09] MEDS: Lisinopril 20 MG Tab PO SCH (12:41)
[2022-12-09] MEDS: Non-Formulary Medication 1 Each (Semaglutide [Rybelsus] 3 MG Tablet) PO SCH (12:41)
[2022-12-09] MEDS: Sertraline 50 MG Tab PO SCH (12:41)
[2022-12-10] MEDS: Non-Formulary Medication 1 Each (Semaglutide [Rybelsus] 3 MG Tablet) PO SCH (11:53)
[2022-12-10] MEDS: metFORMIN 1,000 MG Tab PO SCH (11:53)
[2022-12-10] MEDS: Aspirin 81 MG Tab.EC PO SCH (11:53)
[2022-12-10] MEDS: Lisinopril 20 MG Tab PO SCH (11:53)
[2022-12-10] MEDS: Tamsulosin 0.4 MG Cap.ER PO SCH (11:53)
[2022-12-10] MEDS: Sertraline 50 MG Tab PO SCH (11:53)
[2022-12-10] MEDS: Pantoprazole 40 MG Tab.CR PO SCH (11:53)
== END 2022-12-10 13:05 | disposition hospice, home (50) | DRG 683 ==
LOC: LB.ED 14:27 → LB.MS 18:13 → UNDOADMOB 18:17 → LB.MS 18:17 → OBSVTOIN 12-06 12:56
PROVIDERS: ADMIT Surgery; ATTEND Surgery
DX: N17.9 Acute kidney failure, unspecified (principal); E87.1 Hypo-osmolality and hyponatremia; K52.9 Noninfective gastroenteritis and colitis, unspecified; K59.00 Constipation, unspecified; E78.00 Pure hypercholesterolemia, unspecified; E11.9 Type 2 diabetes mellitus without complications; K59.09 Other constipation; I10 Essential (primary) hypertension; M19.90 Unspecified osteoarthritis, unspecified site; R41.0 Disorientation, unspecified; R45.1 Restlessness and agitation; G31.9 Degenerative disease of nervous system, unspecified; Z88.8 Allergy status to other drugs, medicaments and biological substances; Z79.899 Other long term (current) drug therapy; K21.9 Gastro-esophageal reflux disease without esophagitis; F03.90 Unspecified dementia, unspecified severity, without behavioral disturbance, psychotic disturbance, mood disturbance, and anxiety; Z90.89 Acquired absence of other organs; Z79.82 Long term (current) use of aspirin; Z79.84 Long term (current) use of oral hypoglycemic drugs; Z79.890 Hormone replacement therapy
CPT/HCPCS: 36415 ×2; 51701 ×2; 74176; 80048; 80053; 81001; 83605; 85025; 86140; 96361 ×2; 96372 ×2; 96374; 96375; 99223; 99233; 99285; A9270 ×20; G0378 ×4; J1630; J2060 ×2; J2270; J7030; J7120; 82947; 99238; U0002